=== PATIENT | male | born 1940 | race Native Hawaiian/Other Pacific Islander ===

== ENCOUNTER 2020-07-26 23:14 | Emergency (ER) | payer OTHER ==
[~2020-07-26] VITALS: Ht 177.8 cm; Wt 67.1 kg
[2020-07-26 23:56] LABS: POTASSIUM 3.7 mmol/L (3.6-5.2)
[2020-07-27 00:58] LABS: PLATELET COUNT 244 K/uL (142-355)
[2020-07-27 01:22] VITALS: BP 193/98; TEMP 98
[2020-07-27] MEDS ORDERED: ABILIFY PO (03:12)
[2020-07-27] MEDS ORDERED: LISI10TA11 PO (03:13)
[2020-07-27] MEDS ORDERED: MEMA5TAB PO (03:14)
[2020-07-27] MEDS ORDERED: TEMA15CA19 PO ×2 (03:15→03:16)
[2020-07-27] MEDS ORDERED: FLUTMIS6 INH (03:17)
[2020-07-27] MEDS ORDERED: ALBUTEROL108 MCG/AC INH (03:19)
== END 2020-07-27 00:40 | disposition home or self-care (01) ==
LOC: ED 23:14
PROVIDERS: Family Medicine
DX: F03.91 Unspecified dementia, unspecified severity, with behavioral disturbance (principal); F22 Delusional disorders; Z11.52 Encounter for screening for COVID-19; Z04.6 Encounter for general psychiatric examination, requested by authority
CPT/HCPCS: 36415; 80053; 85027; 87635; 93005; 99283; U0003

== ENCOUNTER 2020-09-17 17:38 | Emergency (ER) | payer OTHER ==
[~2020-09-17] VITALS: Ht 172.7 cm; Wt 59.0 kg
[2020-09-17 17:38] VITALS: BP 182/69; TEMP 96.9
[~2020-09-17 17:38] MED LIST: ABILIFY PO; ALBUTEROL108 MCG/AC INH; FLUTMIS6 INH; LISI10TA11 PO; MEMA5TAB PO; TEMA15CA19 PO
[2020-09-17 18:25] LABS: PLATELET COUNT 235 K/uL (142-355)
[2020-09-17 18:45] LABS: POTASSIUM 4.4 mmol/L (3.6-5.2)
[2020-09-17] MEDS ORDERED: LEXAPRO20 MG PO (20:15)
[2020-09-17] MEDS ORDERED: MELATONIN5 M2 PO (20:16)
[2020-09-17] MEDS ORDERED: METFORMIN HYD1000 MG PO (20:18)
[2020-09-17] MEDS ORDERED: MIRTAZAPINE7.5 MG PO (20:19)
[2020-09-17] MEDS ORDERED: BUDE1AER5 INH (20:21)
[2020-09-17] MEDS ORDERED: PROVERA10 MG PO (20:22)
[2020-09-17] MEDS ORDERED: LORA1TAB17 PO (20:23)
[2020-09-17] MEDS ORDERED: PROVENTIL108 MCG/AC INH (20:26)
== END 2020-09-17 19:46 | disposition still patient (30) ==
LOC: ED 17:43
PROVIDERS: Emergency Medicine
DX: F03.90 Unspecified dementia, unspecified severity, without behavioral disturbance, psychotic disturbance, mood disturbance, and anxiety (principal); R45.1 Restlessness and agitation; N39.0 Urinary tract infection, site not specified; E86.0 Dehydration; Z11.52 Encounter for screening for COVID-19; Z04.6 Encounter for general psychiatric examination, requested by authority
CPT/HCPCS: 80053; 81000; 85027; 87086; 87088; 87635; 93005; 99283; J0696; U0003